=== PATIENT | female | born 1975 | race Hispanic/Latino ===

== ENCOUNTER 2016-06-08 13:47 | Emergency (ER) | payer MEDICAID ==
[2016-06-08] MEDS ORDERED: PEN G BENZ 1.2M UNITS/2 ML SYR IM ONE (15:10)
[2016-06-08] MEDS ORDERED: DEXAMETHASONE 4 MG/ML VIAL ONE (15:23)
== END 2016-06-08 15:49 | disposition home or self-care (01) ==
LOC: FASTR 13:47
CPT/HCPCS: 87880; 96372